=== PATIENT | male | born 1950 | race Caucasian/White ===

== ENCOUNTER 2019-07-21 11:30 | Inpatient (IN) | payer MEDICARE ==
[2019-07-21] MEDS ORDERED: LORazepam 2 MG/ML SDV IVPUSH ONE (11:44)
[2019-07-21] MEDS ORDERED: Lactated Ringers 1,000 ML IV SCH (11:45)
--- NOTE | 2019-07-21 11:58 | EDM.PDOC ---
ED HPI GENERAL MEDICAL PROBLEM - General Chief Complaint: Drug or Alcohol Abuse Stated Complaint: [facility] Time Seen by Provider: 07/21/19 11:38 Source of Information: Reports: Patient, RN Notes Reviewed History Limitations: Reports: Physical Impairment - History of Present Illness INITIAL COMMENTS - FREE TEXT/NARRATIVE: 69-year-old gentleman presents the emergency department today via EMS services, he was recently admitted to detoxification facility early this morning states he last drank alcohol prior to admission to the detoxification facility. Report from detoxification facility is that he fell hit his head has been incontinent of urine and stool. Tremor volume has increased received 11 mg Ativan over the last 13hours. Also report he is having hallucinations. When I interview him his speech is difficult to understand but he knows he is in the hospital he does not recall falling or hitting his head he does not describe hallucinations he does scribes a change in vision in that his vision is cloudy denies any auditory hallucinations - Related Data Allergies Allergy/AdvReac Type Severity Reaction Status Date / Time No Known Allergies Allergy Verified 07/21/19 12:40 Home Meds: Home Meds Bumetanide [Bumex] 1 mg PO DAILY 07/21/19 [History] DULoxetine [Cymbalta] 60 mg PO DAILY 07/21/19 [History] Lisinopril [Zestril] 10 mg PO DAILY 07/21/19 [History] Melatonin 3 mg PO BEDTIME PRN 07/21/19 [History] Multivitamin [Multivitamins] 1 tab PO DAILY 07/21/19 [History] Naltrexone 50 mg PO DAILY 07/21/19 [History] Potassium Chloride [K-Tab ER] 10 meq PO DAILY 07/21/19 [History] Spironolactone [Aldactone] 50 mg PO DAILY 07/21/19 [History] amLODIPine [Norvasc] 5 mg PO DAILY 07/21/19 [History] atorvaSTATin [Lipitor] 10 mg PO DAILY 07/21/19 [History] buPROPion [Wellbutrin SR] 150 mg PO BID 07/21/19 [History] Social & Family History - Tobacco Use Smoking Status *Q: Current Every Day Smoker ED ROS GENERAL - Review of Systems Review Of Systems: See Below Constitutional: Reports: No Symptoms HEENT: Reports: No Symptoms Respiratory: Reports: No Symptoms Cardiovascular: Reports: No Symptoms GI/Abdominal: Reports: No Symptoms Neurological: Reports: Headache, Tremors ED EXAM, GENERAL - Physical Exam Exam: See Below Exam Limited By: Physical Impairment General Appearance: Alert, Mild Distress Eye Exam: Bilateral Eye: Normal Inspection, PERRL Head: Atraumatic, Normocephalic Neck: Normal Inspection, Supple, Non-Tender, Full Range of Motion Respiratory/Chest: No Respiratory Distress, Lungs Clear, Normal Breath Sounds, No Accessory Muscle Use, Chest Non-Tender Cardiovascular: Regular Rate, Rhythm, No Murmur Course - Vital Signs Last Recorded V/S: Last Vital Signs Temp 98 F 07/21/19 12:07 Pulse 86 07/21/19 12:07 Resp 18 07/21/19 12:07 BP 125/77 07/21/19 12:07 Pulse Ox 94 L 07/21/19 12:07 - Orders/Labs/Meds Orders: Active Orders 24 hr Category Date Time Status Peripheral IV Care [RC] . DIRECTED Care 07/21/19 11:42 Active Lactated Ringers [Ringers, Lactated] 1,000 ml Med 07/21/19 11:45 Active IV ASDIRECTED Sodium Chloride 0.9% [Saline Flush] Med 07/21/19 11:41 Active 10 ml FLUSH ASDIRECTED PRN Peripheral IV Insertion Adult [OM.PC] Urgent Oth 07/21/19 11:41 Ordered Medication Orders Lactated Ringer's (Ringers, Lactated) 1,000 mls @ 500 mls/hr IV ASDIRECTED SONALI Last Admin: 07/21/19 12:51 Dose: 500 mls/hr Sodium Chloride (Saline Flush) 10 ml FLUSH ASDIRECTED PRN PRN Reason: Keep Vein Open Last Admin: 07/21/19 12:52 Dose: 10 ml Labs: Laboratory Tests 07/21/19 07/21/19 07/21/19 Range/Units 11:50 11:50 11:50 WBC 5.4 (4.5-11.0) K/uL RBC 3.99 L (4.30-5.90) M/uL Hgb 13.1 (12.0-15.0) g/dL Hct 39.2 L (40.0-54.0) % MCV 98 (80-98) fL MCH 33 H (27-31) pg MCHC 33 (32-36) % Plt Count 131 L (150-400) K/uL Neut % (Auto) 61 (36-66) % Lymph % (Auto) 20 L (24-44) % [place] % (Auto) 15 H (2-6) % Eos % (Auto) 3 (2-4) % Baso % (Auto) 1 (0-1) % PT 11.4 (9.5-12.0) sec INR 1.06 (0.80-1.20) Sodium 138 L (140-148) mmol/L Potassium 3.5 L (3.6-5.2) mmol/L Chloride 101 (100-108) mmol/L Carbon Dioxide 24 (21-32) mmol/L Anion Gap 16.5 H (5.0-14.0) mmol/L BUN 15 (7-18) mg/dL Creatinine 1.0 (0.8-1.3) mg/dL Est Cr Clr Drug Dosing 83.34 mL/min Estimated GFR (MDRD) > 60 (>60) Glucose 86 (74-106) mg/dL Lactic Acid (0.4-2.0) mmol/L Calcium 9.3 (8.5-10.1) mg/dL Total Bilirubin 1.0 (0.2-1.0) mg/dL AST 178 H (15-37) U/L ALT 144 H (12-78) U/L Alkaline Phosphatase 60 (46-116) U/L Ammonia (11-32) mmol/L Troponin I < 0.017 (0.000-0.056) ng/mL Total Protein 7.2 (6.4-8.2) g/dL Albumin 3.6 (3.4-5.0) g/dL Globulin 3.6 H (2.3-3.5) g/dL Albumin/Globulin Ratio 1.0 L (1.2-2.2) Ethyl Alcohol mg/dL 07/21/19 07/21/19 07/21/19 Range/Units 11:50 11:50 11:50 WBC (4.5-11.0) K/uL RBC (4.30-5.90) M/uL Hgb (12.0-15.0) g/dL Hct (40.0-54.0) % MCV (80-98) fL MCH (27-31) pg MCHC (32-36) % Plt Count (150-400) K/uL Neut % (Auto) (36-66) % Lymph % (Auto) (24-44) % [place] % (Auto) (2-6) % Eos % (Auto) (2-4) % Baso % (Auto) (0-1) % PT (9.5-12.0) sec INR (0.80-1.20) Sodium (140-148) mmol/L Potassium (3.6-5.2) mmol/L Chloride (100-108) mmol/L Carbon Dioxide (21-32) mmol/L Anion Gap (5.0-14.0) mmol/L BUN (7-18) mg/dL Creatinine (0.8-1.3) mg/dL Est Cr Clr Drug Dosing mL/min Estimated GFR (MDRD) (>60) Glucose (74-106) mg/dL Lactic Acid 2.6 H (0.4-2.0) mmol/L Calcium (8.5-10.1) mg/dL Total Bilirubin (0.2-1.0) mg/dL AST (15-37) U/L ALT (12-78) U/L Alkaline Phosphatase (46-116) U/L Ammonia 19 (11-32) mmol/L Troponin I (0.000-0.056) ng/mL Total Protein (6.4-8.2) g/dL Albumin (3.4-5.0) g/dL Globulin (2.3-3.5) g/dL Albumin/Globulin Ratio (1.2-2.2) Ethyl Alcohol < 3 mg/dL Meds: Medications Generic Name Dose Route Start Last Admin Trade Name Freq PRN Reason Stop Dose Admin Lactated Ringer's 1,000 mls @ 500 mls/hr 07/21/19 11:45 07/21/19 12:51 Ringers, Lactated IV 500 mls/hr ASDIRECTED SONALI Administration Sodium Chloride 10 ml 07/21/19 11:41 07/21/19 12:52 Saline Flush FLUSH 10 ml ASDIRECTED PRN Administration Keep Vein Open Discontinued Medications Generic Name Dose Route Start Last Admin Trade Name Freq PRN Reason Stop Dose Admin Lorazepam 1 mg 07/21/19 11:44 07/21/19 12:47 Ativan IVPUSH 07/21/19 11:45 1 mg ONETIME ONE Administration Departure - Departure Time of Disposition: 13:12 Disposition: Admitted As Inpatient 68 Condition: Fair Clinical Impression: Alcohol abuse Alcohol withdrawal syndrome Qualifiers: Complication of substance-induced condition: with delirium Qualified Code(s): F10.231 - Alcohol dependence with withdrawal delirium - Discharge Information Referrals: PCP,None [Primary Care Provider] - Forms: ED Department Discharge Sepsis Event Note - Focused Exam Vital Signs: Vital Signs Temp Pulse Resp BP Pulse Ox 07/21/19 12:07 98 F 86 18 125/77 94 L 07/21/19 11:33 98 F 86 18 125/77 94 L Date Exam was Performed: 07/21/19 Time Exam was Performed: 13:07 - My Orders Last 24 Hours: My Active Orders 07/21/19 11:41 Sodium Chloride 0.9% [Saline Flush] 10 ml FLUSH ASDIRECTED PRN Peripheral IV Insertion Adult [OM.PC] Urgent 07/21/19 11:42 Peripheral IV Care [RC] . DIRECTED 07/21/19 11:45 Lactated Ringers [Ringers, Lactated] 1,000 ml IV ASDIRECTED - Assessment/Plan Last 24 Hours: My Active Orders 07/21/19 11:41 Sodium Chloride 0.9% [Saline Flush] 10 ml FLUSH ASDIRECTED PRN Peripheral IV Insertion Adult [OM.PC] Urgent 07/21/19 11:42 Peripheral IV Care [RC] . DIRECTED 07/21/19 11:45 Lactated Ringers [Ringers, Lactated] 1,000 ml IV ASDIRECTED Plan: Assessment Acuity = acute Site and laterality = alcohol abuse intoxication with delirium tremors Etiology = EtOH Manifestations = weakness difficulty ambulating Location of injury = Home Lab values = CBC unremarkable lactic acid slightly elevated 2.6 consistent lactic acidosis AST elevated 178 ALT at 144 consistent elevated liver enzymes troponin was negative EtOH less than 3 Plan Called and discussed case with Dr. Salamanca at 1300 he kindly agreed to come and evaluate the patient in the hospital for admission thus far has been given 1 mg Ativan and food in the emergency department This note was dictated using [employer] voice recognition software please call with any questions on syntax or grammar.
--- NOTE | 2019-07-21 12:23 | CRLCT ---
INDICATION: Trauma COMPARISON: None TECHNIQUE: CT examination of the head was performed as axial sections without intravenous contrast. Images were obtained from the vertex of the skull through the skull base. Please note that all CT scans at this facility use dose modulation, iterative reconstruction, and/or weight-based dosing when appropriate to reduce radiation dose to as low as reasonably achievable. FINDINGS: The brain shows no sign of mass lesion, mass effect, hemorrhage, or edema. There are involutional changes. There is moderate to severe cortical atrophy and there is moderate to severe white matter disease. There is no hydrocephalus. The visualized portions of the orbits are normal in appearance. The osseous structures are normal in appearance with no sign of abnormality in the skull base or calvarium. IMPRESSION: Moderate to severe involutional changes. No visible acute posttraumatic finding. Please note that all CT scans at this facility use dose modulation, iterative reconstruction, and/or weight-based dosing when appropriate to reduce radiation dose to as low as reasonably achievable. Dictated by Marco Antonio Castillo MD @ Jul 21 2019 12:19PM Signed by Dr. Marco Antonio Castillo @ Jul 21 2019 12:21PM
[2019-07-21] MEDS: Sodium Chloride 0.9% 10 ML Syringe FLUSH PRN (12:52)
[2019-07-21] MEDS ORDERED: LORazepam 2 MG/ML SDV IVPUSH PRN (13:16)
[2019-07-21] MEDS: LORazepam 2 MG/ML SDV IVPUSH PRN ×9 (14:45→21:59)
[2019-07-21] MEDS: Lactated Ringers 1,000 ML IV SCH ×2 (15:44→17:33)
--- NOTE | 2019-07-21 16:32 | PCM.HP.2 ---
H&P History of Present Illness - General Date of Service: 07/21/19 Admit Problem/Dx: Admission Diagnosis/Problem Admission Diagnosis/Problem Alcohol withdrawal delirium Source of Information: Patient, RN Notes Reviewed - History of Present Illness Initial Comments - Free Text/Narative: Jose Alejandro is a 69-year-old male has a history of alcohol use for a number of years and recently lost his girlfriend has started to drink heavy. He claims his drinking 1.75 L of vodka daily. In review of the records that came from [facility] has a significant history of essential hypertension hyperlipidemia, erectile dysfunction, osteoarthritis, tobacco use, benign prosthetic hyperplasia, Presbyopia, Hypermetropia, elevated PSA, low back pain, spinal stenosis, depression, hammertoe, back surgery, cataracts, BMI of 30, bronchospasm, tubular adenoma of the colon, and diastolic dysfunction with heart failure alcohol use, severe, dependence, alcohol withdrawal, acute kidney injury. He was at [facility]. He fell and was unable to participate in the program of alcohol withdrawal. He was then brought to the hospital and admitted. He is confused and unable to give a history. Onset of Symptoms: Reports: Gradual - Related Data Allergies/Adverse Reactions: Allergies Allergy/AdvReac Type Severity Reaction Status Date / Time No Known Allergies Allergy Verified 07/21/19 12:40 Home Medications: Home Meds Bumetanide [Bumex] 1 mg PO DAILY 07/21/19 [History] DULoxetine [Cymbalta] 60 mg PO DAILY 07/21/19 [History] Lisinopril [Zestril] 10 mg PO DAILY 07/21/19 [History] Melatonin 3 mg PO BEDTIME PRN 07/21/19 [History] Multivitamin [Multivitamins] 1 tab PO DAILY 07/21/19 [History] Naltrexone 50 mg PO DAILY 07/21/19 [History] Potassium Chloride [K-Tab ER] 10 meq PO DAILY 07/21/19 [History] Spironolactone [Aldactone] 50 mg PO DAILY 07/21/19 [History] amLODIPine [Norvasc] 5 mg PO DAILY 07/21/19 [History] atorvaSTATin [Lipitor] 10 mg PO DAILY 07/21/19 [History] buPROPion [Wellbutrin SR] 150 mg PO BID 07/21/19 [History] Past Medical History Cardiovascular History: Reports: Heart Failure, High Cholesterol, Hypertension Respiratory History: Reports: Bronchitis, Recurrent Genitourinary History: Reports: Prostate Disorder, Other (See Below) Other Genitourinary History: acute kidney injury. Musculoskeletal History: Reports: Arthritis, Back Pain, Chronic Other Musculoskeletal History: SPinal Stenosis Psychiatric History: Reports: Addiction, Depression - Past Surgical History Other GI Surgeries/Procedures: tubular adenoma of colon Musculoskeletal Surgical History: Reports: Other (See Below) Other Musculoskeletal Surgeries/Procedures:: back surgery Social & Family History - Tobacco Use Smoking Status *Q: Current Every Day Smoker - Caffeine Use Caffeine Use: Reports: Coffee - Recreational Drug Use Recreational Drug Use: No H&P Review of Systems - Review of Systems: Review Of Systems: See Below General: Reports: Weakness Pulmonary: Reports: Shortness of Breath, Cough Cardiovascular: Reports: Dyspnea on Exertion Gastrointestinal: Reports: Difficulty Swallowing, Nausea Genitourinary: Reports: Incontinence Skin: Reports: No Symptoms Psychiatric: Reports: Agitation Neurological: Reports: Confusion, Trouble Speaking, Difficulty Walking, Weakness Hematologic/Lymphatic: Reports: No Symptoms Immunologic: Reports: No Symptoms Exam - Exam Exam: See Below - Vital Signs Vital Signs: Last Vital Signs Temp 98 F 07/21/19 14:00 Pulse 118 H 07/21/19 15:00 Resp 24 H 07/21/19 15:00 BP 158/77 H 07/21/19 15:00 Pulse Ox 96 07/21/19 15:00 Weight: 325 lb 15.96 oz - Exam General: Moderate Distress HEENT: PERRLA, Hearing Intact Neck: Supple Lungs: Clear to Auscultation Cardiovascular: Regular Rate GI/Abdominal Exam: Normal Bowel Sounds, Soft Back Exam: Normal Inspection Extremities: Pedal Edema Peripheral Pulses: 1+: Radial (L), Radial (R) Skin: Warm, Dry, Intact Neurological: Reflexes Equal Bilateral Neuro Extensive - Mental Status: Disorientation to Person, Disorientation to Place DTR: 1+: Bicep (L), Bicep (R) Psychiatric: Withdrawal Symptoms - Patient Data Lab Results Last 24 hrs: Laboratory Results - last 24 hr 07/21/19 07/21/19 07/21/19 Range/Units 11:50 11:50 11:50 WBC 5.4 (4.5-11.0) K/uL RBC 3.99 L (4.30-5.90) M/uL Hgb 13.1 (12.0-15.0) g/dL Hct 39.2 L (40.0-54.0) % MCV 98 (80-98) fL MCH 33 H (27-31) pg MCHC 33 (32-36) % Plt Count 131 L (150-400) K/uL Neut % (Auto) 61 (36-66) % Lymph % (Auto) 20 L (24-44) % [place] % (Auto) 15 H (2-6) % Eos % (Auto) 3 (2-4) % Baso % (Auto) 1 (0-1) % PT 11.4 (9.5-12.0) sec INR 1.06 (0.80-1.20) Sodium 138 L (140-148) mmol/L Potassium 3.5 L (3.6-5.2) mmol/L Chloride 101 (100-108) mmol/L Carbon Dioxide 24 (21-32) mmol/L Anion Gap 16.5 H (5.0-14.0) mmol/L BUN 15 (7-18) mg/dL Creatinine 1.0 (0.8-1.3) mg/dL Est Cr Clr Drug Dosing 83.34 mL/min Estimated GFR (MDRD) > 60 (>60) Glucose 86 (74-106) mg/dL Lactic Acid (0.4-2.0) mmol/L Calcium 9.3 (8.5-10.1) mg/dL Total Bilirubin 1.0 (0.2-1.0) mg/dL AST 178 H (15-37) U/L ALT 144 H (12-78) U/L Alkaline Phosphatase 60 (46-116) U/L Ammonia (11-32) mmol/L Troponin I < 0.017 (0.000-0.056) ng/mL Total Protein 7.2 (6.4-8.2) g/dL Albumin 3.6 (3.4-5.0) g/dL Globulin 3.6 H (2.3-3.5) g/dL Albumin/Globulin Ratio 1.0 L (1.2-2.2) Ethyl Alcohol mg/dL 07/21/19 07/21/19 07/21/19 Range/Units 11:50 11:50 11:50 WBC (4.5-11.0) K/uL RBC (4.30-5.90) M/uL Hgb (12.0-15.0) g/dL Hct (40.0-54.0) % MCV (80-98) fL MCH (27-31) pg MCHC (32-36) % Plt Count (150-400) K/uL Neut % (Auto) (36-66) % Lymph % (Auto) (24-44) % [place] % (Auto) (2-6) % Eos % (Auto) (2-4) % Baso % (Auto) (0-1) % PT (9.5-12.0) sec INR (0.80-1.20) Sodium (140-148) mmol/L Potassium (3.6-5.2) mmol/L Chloride (100-108) mmol/L Carbon Dioxide (21-32) mmol/L Anion Gap (5.0-14.0) mmol/L BUN (7-18) mg/dL Creatinine (0.8-1.3) mg/dL Est Cr Clr Drug Dosing mL/min Estimated GFR (MDRD) (>60) Glucose (74-106) mg/dL Lactic Acid 2.6 H (0.4-2.0) mmol/L Calcium (8.5-10.1) mg/dL Total Bilirubin (0.2-1.0) mg/dL AST (15-37) U/L ALT (12-78) U/L Alkaline Phosphatase (46-116) U/L Ammonia 19 (11-32) mmol/L Troponin I (0.000-0.056) ng/mL Total Protein (6.4-8.2) g/dL Albumin (3.4-5.0) g/dL Globulin (2.3-3.5) g/dL Albumin/Globulin Ratio (1.2-2.2) Ethyl Alcohol < 3 mg/dL Result Diagrams: 07/21/19 11:50 07/21/19 11:50 Sepsis Event Note - Evaluation Sepsis Screening Result: No Definite Risk - Focused Exam Vital Signs: Vital Signs Temp Temp Pulse Pulse Resp BP Pulse Ox 07/21/19 15:00 118 H 24 H 158/77 H 96 07/21/19 14:00 98 F 109 H 24 H 137/78 96 07/21/19 13:56 98 F 109 H 15 96 07/21/19 12:07 98 F 86 18 125/77 94 L 07/21/19 11:33 98 F 86 18 125/77 94 L Date Exam was Performed: 07/21/19 Time Exam was Performed: 16:27 Problem List Initiated/Reviewed/Updated: Yes Orders Last 24hrs: Active Orders 24 hr Category Date Time Status Patient Status [ADT] Routine ADT 07/21/19 13:14 Active CIWAA Assessment [RC] Q1H Care 07/21/19 13:16 Active Height and Weight [RC] DAILY Care 07/21/19 13:14 Active Intake and Output [RC] QSHIFT Care 07/21/19 13:15 Active Oxygen Therapy [RC] PRN Care 07/21/19 13:14 Active Peripheral IV Care [RC] . DIRECTED Care 07/21/19 11:42 Active Up With Assistance [RC] ASDIRECTED Care 07/21/19 13:14 Active VTE/DVT Education [RC] Per Unit Routine Care 07/21/19 13:14 Active Vital Signs [RC] Q4H Care 07/21/19 13:14 Active PT Evaluation and Treatment [CONS] Routine Cons 07/21/19 16:18 Active Regular Diet [DIET] Diet 07/21/19 Dinner Active LORazepam [Ativan] Med 07/21/19 13:54 Active See Protocol IVPUSH ASDIRECTED PRN Lactated Ringers [Ringers, Lactated] 1,000 ml Med 07/21/19 13:15 Active IV ASDIRECTED Sodium Chloride 0.9% [Saline Flush] Med 07/21/19 11:41 Active 10 ml FLUSH ASDIRECTED PRN Peripheral IV Insertion Adult [OM.PC] Urgent Oth 07/21/19 11:41 Ordered Resuscitation Status Routine Resus Stat 07/21/19 13:14 Ordered Medication Orders Lactated Ringer's (Ringers, Lactated) 1,000 mls @ 125 mls/hr IV ASDIRECTED SONALI Last Admin: 07/21/19 15:44 Dose: 125 mls/hr Lorazepam (Ativan) 0 mg IVPUSH ASDIRECTED PRN; Protocol PRN Reason: Agitation Last Admin: 07/21/19 16:21 Dose: 2 mg Admin: 07/21/19 15:44 Dose: 2 mg Admin: 07/21/19 15:23 Dose: 2 mg Admin: 07/21/19 14:45 Dose: 2 mg Sodium Chloride (Saline Flush) 10 ml FLUSH ASDIRECTED PRN PRN Reason: Keep Vein Open Last Admin: 07/21/19 12:52 Dose: 10 ml Assessment/Plan Comment:: Assessment/plan: #1. Alcohol withdrawal. I'll put him on the protocol using Valium and/or Ativan according to his symptoms. #2. Confusion. This a feel secondary to alcohol withdrawal #3. Hypertension: He needs to continue on with amlodipine as well as Bumex and lisinopril. We will continue this medicine depending on blood pressure readings has to go through withdrawals. #4. Depression. He'll continue with Wellbutrin as well as Cymbalta #5. Hyperlipidemia. Will continue with atorvastatin 10 mg every night. #6. Chronic obstructive pulmonary disease. We'll continue with albuterol inhaler.
[2019-07-21] MEDS ORDERED: Albuterol 8 GM Inhaler INH PRN (16:57)
[2019-07-21] MEDS: Haloperidol Lactate 5 MG/ML SDV IVPUSH PRN (17:27)
[2019-07-21] MEDS: buPROPion 150 MG Tab.SR PO SCH (22:08)
[2019-07-21] MEDS ORDERED: LORazepam 2 MG/ML SDV IM PRN (22:30)
[2019-07-22] MEDS: LORazepam 2 MG/ML SDV IV PRN ×9 (00:53→18:12)
[2019-07-22] MEDS: Lactated Ringers 1,000 ML IV SCH ×2 (00:57→08:51)
[2019-07-22] MEDS: Haloperidol Lactate 5 MG/ML SDV IVPUSH PRN ×2 (01:14→10:18)
[2019-07-22] MEDS: DULoxetine 30 MG Cap PO SCH (08:01)
[2019-07-22] MEDS: Folic Acid 1 MG Tab PO SCH (08:01)
[2019-07-22] MEDS: buPROPion 150 MG Tab.SR PO SCH ×2 (08:02→20:31)
[2019-07-22] MEDS: Lisinopril 10 MG Tab PO SCH (08:02)
[2019-07-22] MEDS: Spironolactone 25 MG Tab PO SCH (08:02)
[2019-07-22] MEDS: Bumetanide 1 MG Tab PO SCH (08:03)
[2019-07-22] MEDS: Dutasteride 0.5 MG Cap PO SCH (08:04)
--- NOTE | 2019-07-22 08:34 | PCM.PN ---
- General Info Date of Service: 07/22/19 Subjective Update: Still in withdrawl with slow improvement. Still needing meds. He did eat food today but shaky due to withdrawal of alcohol. Functional Status: Reports: Pain Controlled - Review of Systems General: Reports: Weakness Pulmonary: Reports: No Symptoms Cardiovascular: Reports: No Symptoms Gastrointestinal: Reports: No Symptoms Genitourinary: Reports: No Symptoms Musculoskeletal: Reports: No Symptoms Skin: Reports: No Symptoms Neurological: Reports: Difficulty Walking, Weakness Psychiatric: Reports: Agitation - Patient Data Vitals - Most Recent: Last Vital Signs Temp 98.1 F 07/22/19 02:00 Pulse 92 07/21/19 18:03 Resp 17 07/22/19 06:00 BP 144/83 H 07/22/19 08:02 Pulse Ox 97 07/22/19 06:00 Weight - Most Recent: 325 lb 15.96 oz I&O - Last 24 Hours: Intake & Output 07/21/19 07/22/19 07/22/19 22:59 06:59 14:59 Intake Total 523 1554 Balance 523 1554 Lab Results Last 24 Hours: Laboratory Results - last 24 hr 07/21/19 07/21/19 07/21/19 Range/Units 11:50 11:50 11:50 WBC 5.4 (4.5-11.0) K/uL RBC 3.99 L (4.30-5.90) M/uL Hgb 13.1 (12.0-15.0) g/dL Hct 39.2 L (40.0-54.0) % MCV 98 (80-98) fL MCH 33 H (27-31) pg MCHC 33 (32-36) % Plt Count 131 L (150-400) K/uL Neut % (Auto) 61 (36-66) % Lymph % (Auto) 20 L (24-44) % [place] % (Auto) 15 H (2-6) % Eos % (Auto) 3 (2-4) % Baso % (Auto) 1 (0-1) % PT 11.4 (9.5-12.0) sec INR 1.06 (0.80-1.20) Sodium 138 L (140-148) mmol/L Potassium 3.5 L (3.6-5.2) mmol/L Chloride 101 (100-108) mmol/L Carbon Dioxide 24 (21-32) mmol/L Anion Gap 16.5 H (5.0-14.0) mmol/L BUN 15 (7-18) mg/dL Creatinine 1.0 (0.8-1.3) mg/dL Est Cr Clr Drug Dosing 83.34 mL/min Estimated GFR (MDRD) > 60 (>60) Glucose 86 (74-106) mg/dL Lactic Acid (0.4-2.0) mmol/L Calcium 9.3 (8.5-10.1) mg/dL Total Bilirubin 1.0 (0.2-1.0) mg/dL AST 178 H (15-37) U/L ALT 144 H (12-78) U/L Alkaline Phosphatase 60 (46-116) U/L Ammonia (11-32) mmol/L Troponin I < 0.017 (0.000-0.056) ng/mL Total Protein 7.2 (6.4-8.2) g/dL Albumin 3.6 (3.4-5.0) g/dL Globulin 3.6 H (2.3-3.5) g/dL Albumin/Globulin Ratio 1.0 L (1.2-2.2) Ethyl Alcohol mg/dL 07/21/19 07/21/19 07/21/19 Range/Units 11:50 11:50 11:50 WBC (4.5-11.0) K/uL RBC (4.30-5.90) M/uL Hgb (12.0-15.0) g/dL Hct (40.0-54.0) % MCV (80-98) fL MCH (27-31) pg MCHC (32-36) % Plt Count (150-400) K/uL Neut % (Auto) (36-66) % Lymph % (Auto) (24-44) % [place] % (Auto) (2-6) % Eos % (Auto) (2-4) % Baso % (Auto) (0-1) % PT (9.5-12.0) sec INR (0.80-1.20) Sodium (140-148) mmol/L Potassium (3.6-5.2) mmol/L Chloride (100-108) mmol/L Carbon Dioxide (21-32) mmol/L Anion Gap (5.0-14.0) mmol/L BUN (7-18) mg/dL Creatinine (0.8-1.3) mg/dL Est Cr Clr Drug Dosing mL/min Estimated GFR (MDRD) (>60) Glucose (74-106) mg/dL Lactic Acid 2.6 H (0.4-2.0) mmol/L Calcium (8.5-10.1) mg/dL Total Bilirubin (0.2-1.0) mg/dL AST (15-37) U/L ALT (12-78) U/L Alkaline Phosphatase (46-116) U/L Ammonia 19 (11-32) mmol/L Troponin I (0.000-0.056) ng/mL Total Protein (6.4-8.2) g/dL Albumin (3.4-5.0) g/dL Globulin (2.3-3.5) g/dL Albumin/Globulin Ratio (1.2-2.2) Ethyl Alcohol < 3 mg/dL Med Orders - Current: Current Medications Albuterol (Ventolin Hfa) 2 gm INH Q4H PRN PRN Reason: Shortness of Breath Amlodipine Besylate (Norvasc) 5 mg PO DAILY [facility] Bumetanide (Bumex) 0.5 mg PO DAILY [facility] Last Admin: 07/22/19 08:03 Dose: 0.5 mg Bupropion HCl (Wellbutrin Sr) 150 mg PO BID [facility] Last Admin: 07/22/19 08:02 Dose: 150 mg Duloxetine HCl (Cymbalta) 60 mg PO DAILY [facility] Last Admin: 07/22/19 08:01 Dose: 60 mg Dutasteride (Avodart) 0.5 mg PO DAILY [facility] Last Admin: 07/22/19 08:04 Dose: 0.5 mg Folic Acid (Folic Acid) 1 mg PO DAILY [facility] Last Admin: 07/22/19 08:01 Dose: 1 mg Haloperidol Lactate (Haldol) 5 mg IVPUSH Q2H PRN PRN Reason: Irritability Last Admin: 07/22/19 01:14 Dose: 5 mg Lactated Ringer's (Ringers, Lactated) 1,000 mls @ 125 mls/hr IV ASDIRECTED [facility] Last Admin: 07/22/19 00:57 Dose: 125 mls/hr Lisinopril (Prinivil) 10 mg PO DAILY [facility] Last Admin: 07/22/19 08:02 Dose: 10 mg Lorazepam (Ativan) 0 mg PO ASDIRECTED PRN; Protocol PRN Reason: ETOH WITHDRAWAL Lorazepam (Ativan) 0 mg IV ASDIRECTED PRN; Protocol PRN Reason: ETOH WITHDRAWAL Last Admin: 07/22/19 08:13 Dose: 2 mg Lorazepam (Ativan) 0 mg IM ASDIRECTED PRN; Protocol PRN Reason: ETOH WITHDRAWAL Sodium Chloride (Saline Flush) 10 ml FLUSH ASDIRECTED PRN PRN Reason: Keep Vein Open Last Admin: 07/21/19 12:52 Dose: 10 ml Spironolactone (Aldactone) 50 mg PO DAILY [facility] Last Admin: 07/22/19 08:02 Dose: 50 mg Discontinued Medications Lactated Ringer's (Ringers, Lactated) 1,000 mls @ 500 mls/hr IV ASDIRECTED [facility] Last Admin: 07/21/19 12:51 Dose: 500 mls/hr Lorazepam (Ativan) 1 mg IVPUSH ONETIME ONE Stop: 07/21/19 11:45 Last Admin: 07/21/19 12:47 Dose: 1 mg Lorazepam (Ativan) 1 mg IVPUSH Q4H PRN PRN Reason: Agitation Last Admin: 07/21/19 13:38 Dose: 1 mg Lorazepam (Ativan) 0 mg IVPUSH ASDIRECTED PRN; Protocol PRN Reason: Agitation Last Admin: 07/21/19 21:59 Dose: 2 mg - Exam General: Moderate Distress HEENT: Pupils Equal Neck: Supple Lungs: Clear to Auscultation Cardiovascular: Regular Rate GI/Abdominal Exam: Normal Bowel Sounds, Non-Tender Back Exam: Normal Inspection Extremities: Pedal Edema Peripheral Pulses: 1+: Radial (L), Radial (R) Psy/Mental Status: Withdrawal Symptoms Sepsis Event Note - Evaluation Sepsis Screening Result: No Definite Risk - Focused Exam Vital Signs: Vital Signs Temp Resp BP BP Pulse Ox 07/22/19 08:02 144/83 H 07/22/19 06:00 17 138/78 97 07/22/19 04:00 13 127/80 99 07/22/19 03:00 18 133/77 98 07/22/19 02:00 98.1 F 13 112/73 98 07/22/19 00:00 14 127/71 97 07/21/19 22:00 16 127/79 96 07/21/19 21:00 19 117/70 99 Date Exam was Performed: 07/22/19 Time Exam was Performed: 18:33 - Problem List Review Problem List Initiated/Reviewed/Updated: Yes - My Orders Last 24 Hours: My Active Orders 07/21/19 16:18 PT Evaluation and Treatment [CONS] Routine 07/21/19 16:57 Albuterol [Ventolin HFA] 2 gm INH Q4H PRN 07/21/19 16:59 RT Post Treatment Assessment [RC] Click to Edit 07/21/19 17:21 Haloperidol Lactate [Haldol] 5 mg IVPUSH Q2H PRN 07/21/19 21:00 buPROPion [Wellbutrin SR] 150 mg PO BID 07/21/19 22:30 LORazepam [Ativan] 0 mg IM ASDIRECTED PRN LORazepam [Ativan] 0 mg IV ASDIRECTED PRN LORazepam [Ativan] 0 mg PO ASDIRECTED PRN 07/22/19 09:00 Bumetanide [Bumex] 0.5 mg PO DAILY DULoxetine [Cymbalta] 60 mg PO DAILY Dutasteride [Avodart] 0.5 mg PO DAILY Folic Acid 1 mg PO DAILY Spironolactone [Aldactone] 50 mg PO DAILY lisinopriL [Prinivil] 10 mg PO DAILY 07/22/19 21:00 amLODIPine [Norvasc] 5 mg PO DAILY - Plan Plan:: Assessment/plan: #1. Alcohol withdrawal. I'll put him on the protocol using Ativan and Haldol according to his symptoms. #2. Confusion. This a feel secondary to alcohol withdrawal #3. Hypertension: He needs to continue on with amlodipine as well as Bumex and lisinopril. We will continue this medicine depending on blood pressure readings has to go through withdrawals. #4. Depression. He'll continue with Wellbutrin as well as Cymbalta #5. Hyperlipidemia. Will continue with atorvastatin 10 mg every night. #6. Chronic obstructive pulmonary disease. We'll continue with albuterol inhaler. Still needs continued care.
[2019-07-22] MEDS: Sodium Chloride 0.9% 10 ML Syringe FLUSH PRN (10:22)
[2019-07-22] MEDS ORDERED: Lactated Ringers 1,000 ML IV SCH (13:45)
[2019-07-22] MEDS: LORazepam 1 MG Tab PO PRN (20:30)
[2019-07-22] MEDS: amLODIPine 5 MG Tab PO SCH (20:31)
[2019-07-22] MEDS ORDERED: Naproxen 250 MG Tab PO PRN (23:45)
[2019-07-23] MEDS: DULoxetine 30 MG Cap PO SCH (09:24)
[2019-07-23] MEDS: buPROPion 150 MG Tab.SR PO SCH ×2 (09:24→20:43)
[2019-07-23] MEDS: Lisinopril 10 MG Tab PO SCH (09:24)
[2019-07-23] MEDS: amLODIPine 5 MG Tab PO SCH (09:25)
[2019-07-23] MEDS: Folic Acid 1 MG Tab PO SCH (09:25)
[2019-07-23] MEDS: Spironolactone 25 MG Tab PO SCH (09:25)
[2019-07-23] MEDS: Dutasteride 0.5 MG Cap PO SCH (09:26)
[2019-07-23] MEDS: Bumetanide 1 MG Tab PO SCH (09:26)
[2019-07-23] MEDS: LORazepam 1 MG Tab PO PRN ×2 (12:03→20:42)
--- NOTE | 2019-07-23 18:07 | PCM.PN ---
- General Info Date of Service: 07/23/19 Subjective Update: Still in withdrawl with improvement. Still needing minimal meds today. He did eat food today but shaky due to withdrawal of alcohol. He thought he would be going home then to treatment. He is still very weak when walking and not safe to walk alone. Functional Status: Reports: Pain Controlled - Review of Systems General: Reports: Weakness, Fatigue HEENT: Reports: No Symptoms Pulmonary: Reports: No Symptoms Cardiovascular: Reports: No Symptoms Gastrointestinal: Reports: No Symptoms Genitourinary: Reports: No Symptoms Musculoskeletal: Reports: No Symptoms Skin: Reports: No Symptoms Neurological: Reports: Difficulty Walking, Weakness, Gait Disturbance Psychiatric: Reports: No Symptoms - Patient Data Vitals - Most Recent: Last Vital Signs Temp 97.8 F 07/23/19 16:00 Pulse 78 07/23/19 16:00 Resp 15 07/23/19 16:00 BP 133/64 07/23/19 16:00 Pulse Ox 97 07/23/19 16:00 Weight - Most Recent: 327 lb 4.8 oz I&O - Last 24 Hours: Intake & Output 07/23/19 07/23/19 07/23/19 06:59 14:59 22:59 Intake Total 575 100 480 Output Total 200 Balance 575 100 280 Med Orders - Current: Current Medications Albuterol (Ventolin Hfa) 2 gm INH Q4H PRN PRN Reason: Shortness of Breath Amlodipine Besylate (Norvasc) 5 mg PO DAILY [facility] Last Admin: 07/23/19 09:25 Dose: 5 mg Bumetanide (Bumex) 0.5 mg PO DAILY [facility] Last Admin: 07/23/19 09:26 Dose: 0.5 mg Bupropion HCl (Wellbutrin Sr) 150 mg PO BID [facility] Last Admin: 07/23/19 09:24 Dose: 150 mg Duloxetine HCl (Cymbalta) 60 mg PO DAILY [facility] Last Admin: 07/23/19 09:24 Dose: 60 mg Dutasteride (Avodart) 0.5 mg PO DAILY [facility] Last Admin: 07/23/19 09:26 Dose: 0.5 mg Folic Acid (Folic Acid) 1 mg PO DAILY [facility] Last Admin: 07/23/19 09:25 Dose: 1 mg Haloperidol Lactate (Haldol) 5 mg IVPUSH Q2H PRN PRN Reason: Irritability Last Admin: 07/22/19 10:18 Dose: 5 mg Lactated Ringer's (Ringers, Lactated) 1,000 mls @ 75 mls/hr IV ASDIRECTED [facility] Lisinopril (Prinivil) 10 mg PO DAILY [facility] Last Admin: 07/23/19 09:24 Dose: 10 mg Lorazepam (Ativan) 0 mg PO ASDIRECTED PRN; Protocol PRN Reason: ETOH WITHDRAWAL Last Admin: 07/23/19 12:03 Dose: 1 mg Lorazepam (Ativan) 0 mg IV ASDIRECTED PRN; Protocol PRN Reason: ETOH WITHDRAWAL Last Admin: 07/22/19 18:12 Dose: 2 mg Lorazepam (Ativan) 0 mg IM ASDIRECTED PRN; Protocol PRN Reason: ETOH WITHDRAWAL Naproxen (Naprosyn) 500 mg PO BID PRN PRN Reason: Pain Last Admin: 07/23/19 00:13 Dose: 500 mg Sodium Chloride (Saline Flush) 10 ml FLUSH ASDIRECTED PRN PRN Reason: Keep Vein Open Last Admin: 07/22/19 10:22 Dose: 10 ml Spironolactone (Aldactone) 50 mg PO DAILY [facility] Last Admin: 07/23/19 09:25 Dose: 50 mg Discontinued Medications Lactated Ringer's (Ringers, Lactated) 1,000 mls @ 500 mls/hr IV ASDIRECTED [facility] Last Admin: 07/21/19 12:51 Dose: 500 mls/hr Lactated Ringer's (Ringers, Lactated) 1,000 mls @ 125 mls/hr IV ASDIRECTED [facility] Last Admin: 07/22/19 08:51 Dose: 125 mls/hr Lorazepam (Ativan) 1 mg IVPUSH ONETIME ONE Stop: 07/21/19 11:45 Last Admin: 07/21/19 12:47 Dose: 1 mg Lorazepam (Ativan) 1 mg IVPUSH Q4H PRN PRN Reason: Agitation Last Admin: 07/21/19 13:38 Dose: 1 mg Lorazepam (Ativan) 0 mg IVPUSH ASDIRECTED PRN; Protocol PRN Reason: Agitation Last Admin: 07/21/19 21:59 Dose: 2 mg - Exam General: Oriented, Mild Distress HEENT: Pupils Equal, Pupils Reactive, EOMI, Mucous Membr. Moist/[place] Neck: Supple Lungs: Clear to Auscultation, Normal Respiratory Effort Cardiovascular: Regular Rate, Regular Rhythm GI/Abdominal Exam: Normal Bowel Sounds, Soft, Non-Tender, No Organomegaly, No Distention, No Abnormal Bruit, No Mass, Pelvis Stable Back Exam: Normal Inspection, Full Range of Motion Extremities: Normal Inspection, Normal Range of Motion, Non-Tender, No Pedal Edema, Normal Capillary Refill Peripheral Pulses: 1+: Radial (L), Radial (R) Skin: Warm, Dry, Intact Neurological: Strength Equal Bilateral, Sensation Intact Psy/Mental Status: Withdrawal Symptoms Sepsis Event Note - Evaluation Sepsis Screening Result: No Definite Risk - Focused Exam Vital Signs: Vital Signs Temp Pulse Resp BP BP Pulse Ox 07/23/19 16:00 97.8 F 78 15 133/64 97 07/23/19 14:00 62 11 L 159/78 H 100 07/23/19 11:59 96.1 F 89 15 137/83 97 07/23/19 10:00 71 12 145/82 H 97 07/23/19 09:25 120/61 07/23/19 09:24 120/61 07/23/19 07:56 96.6 F 61 12 120/61 97 Date Exam was Performed: 07/23/19 Time Exam was Performed: 18:00 - Problem List Review Problem List Initiated/Reviewed/Updated: Yes - My Orders Last 24 Hours: My Active Orders 07/22/19 21:00 amLODIPine [Norvasc] 5 mg PO DAILY 07/22/19 23:45 Naproxen [Naprosyn] 500 mg PO BID PRN - Plan Plan:: Assessment/plan: #1. Alcohol withdrawal. He is doing much better at the present time. I spoke with the sister, Alma Delia, who has related he is to go for treatment in [place] but he must be independent for walking before they will except him. He will be going for Rehab at [facility] and then to the rehab for alcohol treatment when able to safely ambulate alone. #2. Confusion. This a feel secondary to alcohol withdrawal much improved presently. #3. Hypertension: He needs to continue on with amlodipine as well as Bumex and lisinopril. #4. Depression. He'll continue with Wellbutrin as well as Cymbalta #5. Hyperlipidemia. Will continue with atorvastatin 10 mg every night. #6. Chronic obstructive pulmonary disease. We'll continue with albuterol inhaler. Still needs continued care. Will repeat labs in the morning.
[2019-07-24] MEDS: LORazepam 1 MG Tab PO PRN ×5 (03:43→23:19)
[2019-07-24] MEDS: Folic Acid 1 MG Tab PO SCH (08:16)
[2019-07-24] MEDS: Spironolactone 25 MG Tab PO SCH (08:16)
[2019-07-24] MEDS: Lisinopril 10 MG Tab PO SCH (08:16)
[2019-07-24] MEDS: DULoxetine 30 MG Cap PO SCH (08:16)
[2019-07-24] MEDS: amLODIPine 5 MG Tab PO SCH (08:17)
[2019-07-24] MEDS: Dutasteride 0.5 MG Cap PO SCH (08:17)
[2019-07-24] MEDS: buPROPion 150 MG Tab.SR PO SCH ×2 (08:17→21:12)
[2019-07-24] MEDS: Bumetanide 1 MG Tab PO SCH (08:18)
--- NOTE | 2019-07-24 17:12 | PCM.PN ---
- General Info Date of Service: 07/24/19 Subjective Update: He was transferred from ICU up to second floor this morning as he was doing quite well. He does state that he sees a few black spots going across his vision and he knows it's not real. He says he has walked a little bit today. Functional Status: Reports: Pain Controlled - Review of Systems General: Reports: Weakness, Fatigue HEENT: Reports: No Symptoms Pulmonary: Reports: No Symptoms Cardiovascular: Reports: No Symptoms Gastrointestinal: Reports: No Symptoms Genitourinary: Reports: No Symptoms Musculoskeletal: Reports: No Symptoms Skin: Reports: No Symptoms Neurological: Reports: Difficulty Walking, Weakness, Gait Disturbance Psychiatric: Reports: Hallucinations - Patient Data Vitals - Most Recent: Last Vital Signs Temp 99 F 07/24/19 15:52 Pulse 93 07/24/19 15:52 Resp 20 07/24/19 15:52 BP 133/86 07/24/19 15:52 Pulse Ox 95 07/24/19 15:52 Weight - Most Recent: 327 lb 4.8 oz I&O - Last 24 Hours: Intake & Output 07/24/19 07/24/19 07/24/19 06:59 14:59 22:59 Intake Total 1220 Output Total 1 Balance 1220 -1 Lab Results Last 24 Hours: Laboratory Results - last 24 hr 07/24/19 07/24/19 Range/Units 06:15 06:15 WBC 6.3 (4.5-11.0) K/uL RBC 4.05 L (4.30-5.90) M/uL Hgb 13.3 (12.0-15.0) g/dL Hct 40.0 (40.0-54.0) % MCV 99 H (80-98) fL MCH 33 H (27-31) pg MCHC 33 (32-36) % Plt Count 146 L (150-400) K/uL Neut % (Auto) 61 (36-66) % Lymph % (Auto) 22 L (24-44) % [place] % (Auto) 13 H (2-6) % Eos % (Auto) 4 (2-4) % Baso % (Auto) 1 (0-1) % Sodium 138 L (140-148) mmol/L Potassium 3.5 L (3.6-5.2) mmol/L Chloride 103 (100-108) mmol/L Carbon Dioxide 25 (21-32) mmol/L Anion Gap 13.5 (5.0-14.0) mmol/L BUN 17 (7-18) mg/dL Creatinine 1.0 (0.8-1.3) mg/dL Est Cr Clr Drug Dosing 83.38 mL/min Estimated GFR (MDRD) > 60 (>60) Glucose 80 (74-106) mg/dL Calcium 8.7 (8.5-10.1) mg/dL Total Bilirubin 1.0 (0.2-1.0) mg/dL AST 66 H (15-37) U/L ALT 115 H (12-78) U/L Alkaline Phosphatase 62 (46-116) U/L Total Protein 6.9 (6.4-8.2) g/dL Albumin 3.3 L (3.4-5.0) g/dL Globulin 3.6 H (2.3-3.5) g/dL Albumin/Globulin Ratio 0.9 L (1.2-2.2) Med Orders - Current: Current Medications Albuterol (Ventolin Hfa) 2 gm INH Q4H PRN PRN Reason: Shortness of Breath Amlodipine Besylate (Norvasc) 5 mg PO DAILY [facility] Last Admin: 07/24/19 08:17 Dose: 5 mg Bumetanide (Bumex) 0.5 mg PO DAILY [facility] Last Admin: 07/24/19 08:18 Dose: Not Given Bupropion HCl (Wellbutrin Sr) 150 mg PO BID [facility] Last Admin: 07/24/19 08:17 Dose: 150 mg Duloxetine HCl (Cymbalta) 60 mg PO DAILY [facility] Last Admin: 07/24/19 08:16 Dose: 60 mg Dutasteride (Avodart) 0.5 mg PO DAILY [facility] Last Admin: 07/24/19 08:17 Dose: 0.5 mg Folic Acid (Folic Acid) 1 mg PO DAILY [facility] Last Admin: 07/24/19 08:16 Dose: 1 mg Haloperidol Lactate (Haldol) 5 mg IVPUSH Q2H PRN PRN Reason: Irritability Last Admin: 07/22/19 10:18 Dose: 5 mg Lisinopril (Prinivil) 10 mg PO DAILY [facility] Last Admin: 07/24/19 08:16 Dose: 10 mg Lorazepam (Ativan) 0 mg PO ASDIRECTED PRN; Protocol PRN Reason: ETOH WITHDRAWAL Last Admin: 07/24/19 16:33 Dose: 1 mg Lorazepam (Ativan) 0 mg IV ASDIRECTED PRN; Protocol PRN Reason: ETOH WITHDRAWAL Last Admin: 07/22/19 18:12 Dose: 2 mg Lorazepam (Ativan) 0 mg IM ASDIRECTED PRN; Protocol PRN Reason: ETOH WITHDRAWAL Naproxen (Naprosyn) 500 mg PO BID PRN PRN Reason: Pain Last Admin: 07/23/19 00:13 Dose: 500 mg Sodium Chloride (Saline Flush) 10 ml FLUSH ASDIRECTED PRN PRN Reason: Keep Vein Open Last Admin: 07/22/19 10:22 Dose: 10 ml Spironolactone (Aldactone) 50 mg PO DAILY [facility] Last Admin: 07/24/19 08:16 Dose: 50 mg Discontinued Medications Lactated Ringer's (Ringers, Lactated) 1,000 mls @ 500 mls/hr IV ASDIRECTED [facility] Last Admin: 07/21/19 12:51 Dose: 500 mls/hr Lactated Ringer's (Ringers, Lactated) 1,000 mls @ 125 mls/hr IV ASDIRECTED [facility] Last Admin: 07/22/19 08:51 Dose: 125 mls/hr Lactated Ringer's (Ringers, Lactated) 1,000 mls @ 75 mls/hr IV ASDIRECTED [facility] Lorazepam (Ativan) 1 mg IVPUSH ONETIME ONE Stop: 07/21/19 11:45 Last Admin: 07/21/19 12:47 Dose: 1 mg Lorazepam (Ativan) 1 mg IVPUSH Q4H PRN PRN Reason: Agitation Last Admin: 07/21/19 13:38 Dose: 1 mg Lorazepam (Ativan) 0 mg IVPUSH ASDIRECTED PRN; Protocol PRN Reason: Agitation Last Admin: 07/21/19 21:59 Dose: 2 mg - Exam General: Alert, Oriented, Mild Distress HEENT: Pupils Equal Neck: Supple Lungs: Clear to Auscultation, Normal Respiratory Effort Cardiovascular: Regular Rate GI/Abdominal Exam: Normal Bowel Sounds Back Exam: Normal Inspection, Full Range of Motion Extremities: Normal Inspection, Normal Range of Motion, Non-Tender, No Pedal Edema, Normal Capillary Refill Peripheral Pulses: 1+: Radial (L), Radial (R) Skin: Warm, Dry, Intact Neurological: Normal Speech, Sensation Intact Psy/Mental Status: Withdrawal Symptoms Sepsis Event Note - Evaluation Sepsis Screening Result: No Definite Risk - Focused Exam Vital Signs: Vital Signs Temp Pulse Resp BP BP Pulse Ox 07/24/19 15:52 99 F 93 20 133/86 95 07/24/19 12:44 98.2 F 97 16 134/83 95 07/24/19 08:17 144/89 H 07/24/19 08:16 144/89 H 07/24/19 08:00 97.6 F 73 13 144/89 H 96 Date Exam was Performed: 07/25/19 Time Exam was Performed: 19:47 - Problem List Review Problem List Initiated/Reviewed/Updated: Yes - My Orders Last 24 Hours: My Active Orders 07/23/19 18:17 Convert IV to Saline Lock [OM.PC] Routine 07/24/19 07:57 Patient Status [ADT] Routine - Plan Plan:: Assessment/plan: #1. Alcohol withdrawal. He is doing much better at the present time. He will be going for Rehab at [facility] and then to the rehab for alcohol treatment when able to safely ambulate alone. #2. Confusion. This a feel secondary to alcohol withdrawal much improved presently. #3. Hypertension: He needs to continue on with amlodipine as well as Bumex and lisinopril. #4. Depression. He'll continue with Wellbutrin as well as Cymbalta #5. Hyperlipidemia. Will continue with atorvastatin 10 mg every night. #6. Chronic obstructive pulmonary disease. We'll continue with albuterol inhaler. Still needs continued care.
[2019-07-24] MEDS: Potassium Chloride 10 MEQ Cap.ER PO SCH (21:14)
[2019-07-25] MEDS: LORazepam 2 MG/ML SDV IV PRN ×7 (00:14→06:35)
[2019-07-25] MEDS: Haloperidol Lactate 5 MG/ML SDV IVPUSH PRN (04:17)
[2019-07-25] MEDS: Spironolactone 25 MG Tab PO SCH (09:57)
[2019-07-25] MEDS: Bumetanide 1 MG Tab PO SCH (09:57)
[2019-07-25] MEDS: Folic Acid 1 MG Tab PO SCH (09:57)
[2019-07-25] MEDS: DULoxetine 30 MG Cap PO SCH (09:57)
[2019-07-25] MEDS: Lisinopril 10 MG Tab PO SCH (09:57)
[2019-07-25] MEDS: buPROPion 150 MG Tab.SR PO SCH ×2 (09:57→20:53)
[2019-07-25] MEDS: amLODIPine 5 MG Tab PO SCH (09:57)
[2019-07-25] MEDS: Dutasteride 0.5 MG Cap PO SCH (09:57)
[2019-07-25] MEDS: Potassium Chloride 10 MEQ Cap.ER PO SCH ×2 (09:57→20:53)
--- NOTE | 2019-07-25 19:55 | PCM.PN ---
- General Info Date of Service: 07/25/19 Subjective Update: He had a difficult time last night and early this morning he went into delirium tremors again and was transferred back to the ICU. He is sedated at the present time. Functional Status: Reports: Pain Controlled - Review of Systems General: Reports: Weakness, Fatigue HEENT: Reports: No Symptoms Pulmonary: Reports: No Symptoms Cardiovascular: Reports: No Symptoms Gastrointestinal: Reports: No Symptoms Genitourinary: Reports: No Symptoms Musculoskeletal: Reports: No Symptoms Skin: Reports: No Symptoms Neurological: Reports: No Symptoms Psychiatric: Reports: Confusion, Hallucinations - Patient Data Vitals - Most Recent: Last Vital Signs Temp 97.5 F 07/25/19 19:00 Pulse 89 07/25/19 07:00 Resp 19 07/25/19 19:00 BP 119/72 07/25/19 19:00 Pulse Ox 98 07/25/19 19:00 Weight - Most Recent: 327 lb 4.8 oz I&O - Last 24 Hours: Intake & Output 07/25/19 07/25/19 07/25/19 06:59 14:59 22:59 Intake Total 180 480 Output Total 575 Balance -395 480 Med Orders - Current: Current Medications Albuterol (Ventolin Hfa) 2 gm INH Q4H PRN PRN Reason: Shortness of Breath Amlodipine Besylate (Norvasc) 5 mg PO DAILY [facility] Last Admin: 07/25/19 09:57 Dose: Not Given Bumetanide (Bumex) 0.5 mg PO DAILY [facility] Last Admin: 07/25/19 09:57 Dose: Not Given Bupropion HCl (Wellbutrin Sr) 150 mg PO BID [facility] Last Admin: 07/25/19 09:57 Dose: Not Given Duloxetine HCl (Cymbalta) 60 mg PO DAILY [facility] Last Admin: 07/25/19 09:57 Dose: Not Given Dutasteride (Avodart) 0.5 mg PO DAILY [facility] Last Admin: 07/25/19 09:57 Dose: Not Given Folic Acid (Folic Acid) 1 mg PO DAILY [facility] Last Admin: 07/25/19 09:57 Dose: Not Given Haloperidol Lactate (Haldol) 5 mg IVPUSH Q2H PRN PRN Reason: Irritability Last Admin: 07/25/19 04:17 Dose: 5 mg Lisinopril (Prinivil) 10 mg PO DAILY [facility] Last Admin: 07/25/19 09:57 Dose: Not Given Lorazepam (Ativan) 0 mg PO ASDIRECTED PRN; Protocol PRN Reason: ETOH WITHDRAWAL Last Admin: 07/24/19 23:19 Dose: 1 mg Lorazepam (Ativan) 0 mg IV ASDIRECTED PRN; Protocol PRN Reason: ETOH WITHDRAWAL Last Admin: 07/25/19 06:35 Dose: 4 mg Lorazepam (Ativan) 0 mg IM ASDIRECTED PRN; Protocol PRN Reason: ETOH WITHDRAWAL Naproxen (Naprosyn) 500 mg PO BID PRN PRN Reason: Pain Last Admin: 07/23/19 00:13 Dose: 500 mg Potassium Chloride (Potassium Chloride) 10 meq PO BID [facility] Last Admin: 07/25/19 09:57 Dose: Not Given Sodium Chloride (Saline Flush) 10 ml FLUSH ASDIRECTED PRN PRN Reason: Keep Vein Open Last Admin: 07/22/19 10:22 Dose: 10 ml Spironolactone (Aldactone) 50 mg PO DAILY [facility] Last Admin: 07/25/19 09:57 Dose: Not Given Discontinued Medications Lactated Ringer's (Ringers, Lactated) 1,000 mls @ 500 mls/hr IV ASDIRECTED [facility] Last Admin: 07/21/19 12:51 Dose: 500 mls/hr Lactated Ringer's (Ringers, Lactated) 1,000 mls @ 125 mls/hr IV ASDIRECTED [facility] Last Admin: 07/22/19 08:51 Dose: 125 mls/hr Lactated Ringer's (Ringers, Lactated) 1,000 mls @ 75 mls/hr IV ASDIRECTED [facility] Lorazepam (Ativan) 1 mg IVPUSH ONETIME ONE Stop: 07/21/19 11:45 Last Admin: 07/21/19 12:47 Dose: 1 mg Lorazepam (Ativan) 1 mg IVPUSH Q4H PRN PRN Reason: Agitation Last Admin: 07/21/19 13:38 Dose: 1 mg Lorazepam (Ativan) 0 mg IVPUSH ASDIRECTED PRN; Protocol PRN Reason: Agitation Last Admin: 07/21/19 21:59 Dose: 2 mg - Exam General: Alert, Oriented HEENT: Pupils Equal, Pupils Reactive, EOMI, Mucous Membr. Moist/[place] Neck: Supple Lungs: Clear to Auscultation, Normal Respiratory Effort Cardiovascular: Regular Rate, Regular Rhythm GI/Abdominal Exam: Normal Bowel Sounds, Soft, Non-Tender, No Organomegaly, No Distention, No Abnormal Bruit, No Mass, Pelvis Stable Extremities: Normal Inspection Peripheral Pulses: 1+: Radial (L), Radial (R) Skin: Warm, Dry, Intact Neurological: No New Focal Deficit Psy/Mental Status: Withdrawal Symptoms Sepsis Event Note - Evaluation Sepsis Screening Result: No Definite Risk - Focused Exam Vital Signs: Vital Signs Temp Resp BP Pulse Ox 07/25/19 19:00 97.5 F 19 119/72 98 07/25/19 18:00 16 114/74 95 07/25/19 17:00 15 120/80 95 07/25/19 16:00 15 147/87 H 95 07/25/19 15:00 96.7 F 16 133/80 94 L 07/25/19 14:00 13 97/57 L 93 L 07/25/19 13:00 12 107/47 L 94 L 07/25/19 12:00 12 109/74 92 L 07/25/19 11:00 98.5 F 13 122/78 93 L 07/25/19 10:00 16 121/82 94 L 07/25/19 09:00 14 123/68 93 L 07/25/19 08:00 12 131/78 93 L Date Exam was Performed: 07/25/19 Time Exam was Performed: 19:51 - Problem List Review Problem List Initiated/Reviewed/Updated: Yes - My Orders Last 24 Hours: My Active Orders 07/24/19 21:00 Potassium Chloride 10 meq PO BID 07/25/19 00:53 Cardiac Monitoring [RC] .As Directed 07/25/19 06:45 Transfer Patient (Change bed) [ADT] Routine - Plan Plan:: Assessment/plan: #1. Alcohol withdrawal. He is sedated at the present time because of recurrent delirium tremors.. He will be going for Rehab at [facility] hopefully by Saturday if stable. He then after rehabilitation will be going for alcohol treatment in [place]. #2. Confusion. This a feel secondary to alcohol withdrawal much improved presently. #3. Hypertension: He needs to continue on with amlodipine as well as Bumex and lisinopril. #4. Depression. He'll continue with Wellbutrin as well as Cymbalta #5. Hyperlipidemia. Will continue with atorvastatin 10 mg every night. #6. Chronic obstructive pulmonary disease. We'll continue with albuterol inhaler. Still needs continued care.
[2019-07-26] MEDS: LORazepam 1 MG Tab PO PRN ×4 (00:20→20:41)
[2019-07-26] MEDS: Spironolactone 25 MG Tab PO SCH (08:38)
[2019-07-26] MEDS: amLODIPine 5 MG Tab PO SCH (08:39)
[2019-07-26] MEDS: DULoxetine 30 MG Cap PO SCH (08:39)
[2019-07-26] MEDS: Lisinopril 10 MG Tab PO SCH (08:40)
[2019-07-26] MEDS: Bumetanide 1 MG Tab PO SCH (08:41)
[2019-07-26] MEDS: Folic Acid 1 MG Tab PO SCH (08:41)
[2019-07-26] MEDS: Potassium Chloride 10 MEQ Cap.ER PO SCH ×2 (08:42→20:30)
[2019-07-26] MEDS: Dutasteride 0.5 MG Cap PO SCH (08:43)
[2019-07-26] MEDS: buPROPion 150 MG Tab.SR PO SCH ×2 (08:44→20:31)
--- NOTE | 2019-07-26 09:30 | PCM.PN ---
- General Info Date of Service: 07/26/19 Functional Status: Reports: Pain Controlled - Review of Systems General: Reports: Weakness HEENT: Reports: No Symptoms Pulmonary: Reports: No Symptoms Cardiovascular: Reports: No Symptoms Gastrointestinal: Reports: No Symptoms Genitourinary: Reports: No Symptoms Musculoskeletal: Reports: No Symptoms Skin: Reports: No Symptoms Neurological: Reports: Difficulty Walking, Weakness, Gait Disturbance Psychiatric: Reports: No Symptoms - Patient Data Vitals - Most Recent: Last Vital Signs Temp 97.9 F 07/26/19 03:00 Pulse 65 07/26/19 08:00 Resp 13 07/26/19 05:58 BP 139/71 07/26/19 08:40 Pulse Ox 98 07/26/19 04:00 Weight - Most Recent: 327 lb 4.8 oz I&O - Last 24 Hours: Intake & Output 07/25/19 07/26/19 07/26/19 22:59 06:59 14:59 Intake Total 480 Output Total 50 Balance 480 -50 Med Orders - Current: Current Medications Albuterol (Ventolin Hfa) 2 gm INH Q4H PRN PRN Reason: Shortness of Breath Amlodipine Besylate (Norvasc) 5 mg PO DAILY [facility] Last Admin: 07/26/19 08:39 Dose: 5 mg Bumetanide (Bumex) 0.5 mg PO DAILY [facility] Last Admin: 07/26/19 08:41 Dose: 0.5 mg Bupropion HCl (Wellbutrin Sr) 150 mg PO BID [facility] Last Admin: 07/26/19 08:44 Dose: 150 mg Duloxetine HCl (Cymbalta) 60 mg PO DAILY [facility] Last Admin: 07/26/19 08:39 Dose: 60 mg Dutasteride (Avodart) 0.5 mg PO DAILY [facility] Last Admin: 07/26/19 08:43 Dose: 0.5 mg Folic Acid (Folic Acid) 1 mg PO DAILY [facility] Last Admin: 07/26/19 08:41 Dose: 1 mg Haloperidol Lactate (Haldol) 5 mg IVPUSH Q2H PRN PRN Reason: Irritability Last Admin: 07/25/19 04:17 Dose: 5 mg Lisinopril (Prinivil) 10 mg PO DAILY [facility] Last Admin: 07/26/19 08:40 Dose: 10 mg Lorazepam (Ativan) 0 mg PO ASDIRECTED PRN; Protocol PRN Reason: ETOH WITHDRAWAL Last Admin: 07/26/19 03:29 Dose: 1 mg Lorazepam (Ativan) 0 mg IV ASDIRECTED PRN; Protocol PRN Reason: ETOH WITHDRAWAL Last Admin: 07/25/19 06:35 Dose: 4 mg Lorazepam (Ativan) 0 mg IM ASDIRECTED PRN; Protocol PRN Reason: ETOH WITHDRAWAL Naproxen (Naprosyn) 500 mg PO BID PRN PRN Reason: Pain Last Admin: 07/23/19 00:13 Dose: 500 mg Potassium Chloride (Potassium Chloride) 10 meq PO BID [facility] Last Admin: 07/26/19 08:42 Dose: 10 meq Sodium Chloride (Saline Flush) 10 ml FLUSH ASDIRECTED PRN PRN Reason: Keep Vein Open Last Admin: 07/22/19 10:22 Dose: 10 ml Spironolactone (Aldactone) 50 mg PO DAILY [facility] Last Admin: 07/26/19 08:38 Dose: 50 mg Discontinued Medications Lactated Ringer's (Ringers, Lactated) 1,000 mls @ 500 mls/hr IV ASDIRECTED [facility] Last Admin: 07/21/19 12:51 Dose: 500 mls/hr Lactated Ringer's (Ringers, Lactated) 1,000 mls @ 125 mls/hr IV ASDIRECTED [facility] Last Admin: 07/22/19 08:51 Dose: 125 mls/hr Lactated Ringer's (Ringers, Lactated) 1,000 mls @ 75 mls/hr IV ASDIRECTED [facility] Lorazepam (Ativan) 1 mg IVPUSH ONETIME ONE Stop: 07/21/19 11:45 Last Admin: 07/21/19 12:47 Dose: 1 mg Lorazepam (Ativan) 1 mg IVPUSH Q4H PRN PRN Reason: Agitation Last Admin: 07/21/19 13:38 Dose: 1 mg Lorazepam (Ativan) 0 mg IVPUSH ASDIRECTED PRN; Protocol PRN Reason: Agitation Last Admin: 07/21/19 21:59 Dose: 2 mg - Exam General: Alert, Oriented HEENT: Pupils Equal, Pupils Reactive, EOMI, Mucous Membr. Moist/[place] Neck: Supple Lungs: Clear to Auscultation, Normal Respiratory Effort Cardiovascular: Regular Rate, Regular Rhythm GI/Abdominal Exam: Normal Bowel Sounds, Soft, Non-Tender, No Organomegaly, No Distention, No Abnormal Bruit, No Mass, Pelvis Stable Back Exam: Normal Inspection, Full Range of Motion Extremities: Normal Inspection, Normal Range of Motion, Non-Tender, No Pedal Edema, Normal Capillary Refill Peripheral Pulses: 1+: Radial (L), Radial (R) Skin: Warm, Dry, Intact Neurological: No New Focal Deficit Psy/Mental Status: Alert, Normal Affect, Normal Mood Sepsis Event Note - Evaluation Sepsis Screening Result: No Definite Risk - Focused Exam Vital Signs: Vital Signs Temp Pulse Resp BP BP Pulse Ox 07/26/19 08:40 139/71 07/26/19 08:39 129/71 07/26/19 08:00 65 07/26/19 07:00 68 07/26/19 05:58 13 112/59 L 07/26/19 05:00 13 113/64 07/26/19 04:00 12 123/75 98 07/26/19 03:00 97.9 F 12 118/65 97 07/26/19 02:00 97.7 F 13 119/67 07/26/19 01:00 12 125/64 07/26/19 00:00 97.7 F 12 127/64 98 07/25/19 23:00 13 116/73 07/25/19 22:00 16 130/71 96 Date Exam was Performed: 07/26/19 Time Exam was Performed: 09:26 - Problem List Review Problem List Initiated/Reviewed/Updated: Yes - My Orders Last 24 Hours: My Active Orders 07/26/19 09:01 Transfer Patient (Change bed) [ADT] Routine 07/27/19 05:11 COMPREHENSIVE METABOLIC PN,CMP [CHEM] Routine - Plan Plan:: Assessment/plan: #1. Alcohol withdrawal. At the present time is in the ICU and doing very well with no symptoms at the present time. He'll be transferred up to the second there is no evidence of any withdrawals , delirium tremors.. He will be going for Rehab at [facility] hopefully by Saturday if stable. He then after rehabilitation will be going for alcohol treatment in [place]. #2. Confusion. He is stable at the present time. #3. Hypertension: He needs to continue on with amlodipine as well as Bumex and lisinopril. #4. Depression. He'll continue with Wellbutrin as well as Cymbalta #5. Hyperlipidemia. Will continue with atorvastatin 10 mg every night. #6. Chronic obstructive pulmonary disease. We'll continue with albuterol inhaler. Still needs continued care.
[2019-07-27] MEDS ORDERED: Sodium Phosphate,Monobasic/Sodium Phosphate,Dibasic Enema 133 ML Bottle RECTAL ONE (10:15)
[2019-07-27] MEDS ORDERED: Bisacodyl 10 MG Supp RECTAL ONE (10:15)
[2019-07-27] MEDS: Spironolactone 25 MG Tab PO SCH (10:30)
[2019-07-27] MEDS: Bumetanide 1 MG Tab PO SCH (10:31)
[2019-07-27] MEDS: Folic Acid 1 MG Tab PO SCH (10:32)
[2019-07-27] MEDS: DULoxetine 30 MG Cap PO SCH (10:32)
[2019-07-27] MEDS: amLODIPine 5 MG Tab PO SCH (10:32)
[2019-07-27] MEDS: Lisinopril 10 MG Tab PO SCH (10:34)
[2019-07-27] MEDS: Potassium Chloride 10 MEQ Cap.ER PO SCH (10:34)
[2019-07-27] MEDS: buPROPion 150 MG Tab.SR PO SCH (10:34)
[2019-07-27] MEDS: Dutasteride 0.5 MG Cap PO SCH (10:40)
--- NOTE | 2019-07-27 12:44 | PCM.PN ---
- General Info Date of Service: 07/27/19 Functional Status: Reports: Pain Controlled - Review of Systems General: Reports: Weakness, Fatigue HEENT: Reports: No Symptoms Pulmonary: Reports: No Symptoms Cardiovascular: Reports: No Symptoms Gastrointestinal: Reports: No Symptoms Genitourinary: Reports: No Symptoms Musculoskeletal: Reports: No Symptoms Skin: Reports: No Symptoms Neurological: Reports: Difficulty Walking, Weakness, Gait Disturbance Psychiatric: Reports: No Symptoms - Patient Data Vitals - Most Recent: Last Vital Signs Temp 97.9 F 07/27/19 11:00 Pulse 79 07/27/19 11:00 Resp 18 07/27/19 11:00 BP 135/70 07/27/19 11:00 Pulse Ox 96 07/27/19 11:00 Weight - Most Recent: 327 lb 4.8 oz I&O - Last 24 Hours: Intake & Output 07/26/19 07/27/19 07/27/19 22:59 06:59 14:59 Intake Total 480 960 Output Total 100 250 Balance 380 -250 960 Lab Results Last 24 Hours: Laboratory Results - last 24 hr 07/27/19 Range/Units 05:30 Sodium 138 L (140-148) mmol/L Potassium 3.9 (3.6-5.2) mmol/L Chloride 104 (100-108) mmol/L Carbon Dioxide 24 (21-32) mmol/L Anion Gap 13.9 (5.0-14.0) mmol/L BUN 13 (7-18) mg/dL Creatinine 1.1 (0.8-1.3) mg/dL Est Cr Clr Drug Dosing 75.80 mL/min Estimated GFR (MDRD) > 60 (>60) Glucose 82 (74-106) mg/dL Calcium 8.7 (8.5-10.1) mg/dL Total Bilirubin 0.8 (0.2-1.0) mg/dL AST 53 H (15-37) U/L ALT 96 H (12-78) U/L Alkaline Phosphatase 62 (46-116) U/L Total Protein 7.1 (6.4-8.2) g/dL Albumin 3.5 (3.4-5.0) g/dL Globulin 3.6 H (2.3-3.5) g/dL Albumin/Globulin Ratio 1.0 L (1.2-2.2) Med Orders - Current: Current Medications Albuterol (Ventolin Hfa) 2 gm INH Q4H PRN PRN Reason: Shortness of Breath Amlodipine Besylate (Norvasc) 5 mg PO DAILY [facility] Last Admin: 07/27/19 10:32 Dose: 5 mg Bumetanide (Bumex) 0.5 mg PO DAILY [facility] Last Admin: 07/27/19 10:31 Dose: 0.5 mg Bupropion HCl (Wellbutrin Sr) 150 mg PO BID [facility] Last Admin: 07/27/19 10:34 Dose: 150 mg Duloxetine HCl (Cymbalta) 60 mg PO DAILY [facility] Last Admin: 07/27/19 10:32 Dose: 60 mg Dutasteride (Avodart) 0.5 mg PO DAILY [facility] Last Admin: 07/27/19 10:40 Dose: 0.5 mg Folic Acid (Folic Acid) 1 mg PO DAILY [facility] Last Admin: 07/27/19 10:32 Dose: 1 mg Haloperidol Lactate (Haldol) 5 mg IVPUSH Q2H PRN PRN Reason: Irritability Last Admin: 07/25/19 04:17 Dose: 5 mg Lisinopril (Prinivil) 10 mg PO DAILY [facility] Last Admin: 07/27/19 10:34 Dose: 10 mg Lorazepam (Ativan) 0 mg PO ASDIRECTED PRN; Protocol PRN Reason: ETOH WITHDRAWAL Last Admin: 07/26/19 20:41 Dose: 2 mg Lorazepam (Ativan) 0 mg IV ASDIRECTED PRN; Protocol PRN Reason: ETOH WITHDRAWAL Last Admin: 07/25/19 06:35 Dose: 4 mg Lorazepam (Ativan) 0 mg IM ASDIRECTED PRN; Protocol PRN Reason: ETOH WITHDRAWAL Naproxen (Naprosyn) 500 mg PO BID PRN PRN Reason: Pain Last Admin: 07/23/19 00:13 Dose: 500 mg Potassium Chloride (Potassium Chloride) 10 meq PO BID [facility] Last Admin: 07/27/19 10:34 Dose: 10 meq Sodium Chloride (Saline Flush) 10 ml FLUSH ASDIRECTED PRN PRN Reason: Keep Vein Open Last Admin: 07/22/19 10:22 Dose: 10 ml Spironolactone (Aldactone) 50 mg PO DAILY [facility] Last Admin: 07/27/19 10:30 Dose: 50 mg Discontinued Medications Bisacodyl (Dulcolax) 10 mg RECTAL ONETIME ONE Stop: 07/27/19 10:16 Last Admin: 07/27/19 10:35 Dose: Not Given Lactated Ringer's (Ringers, Lactated) 1,000 mls @ 500 mls/hr IV ASDIRECTED [facility] Last Admin: 07/21/19 12:51 Dose: 500 mls/hr Lactated Ringer's (Ringers, Lactated) 1,000 mls @ 125 mls/hr IV ASDIRECTED [facility] Last Admin: 07/22/19 08:51 Dose: 125 mls/hr Lactated Ringer's (Ringers, Lactated) 1,000 mls @ 75 mls/hr IV ASDIRECTED [facility] Lorazepam (Ativan) 1 mg IVPUSH ONETIME ONE Stop: 07/21/19 11:45 Last Admin: 07/21/19 12:47 Dose: 1 mg Lorazepam (Ativan) 1 mg IVPUSH Q4H PRN PRN Reason: Agitation Last Admin: 07/21/19 13:38 Dose: 1 mg Lorazepam (Ativan) 0 mg IVPUSH ASDIRECTED PRN; Protocol PRN Reason: Agitation Last Admin: 07/21/19 21:59 Dose: 2 mg Sodium Biphosphate/Sodium Phosphate (Fleet Enema) 133 ml RECTAL ONETIME ONE Stop: 07/27/19 10:16 Last Admin: 07/27/19 09:50 Dose: 1 dose - Exam General: Alert, Oriented HEENT: Pupils Equal, Pupils Reactive, EOMI, Mucous Membr. Moist/[place] Neck: Supple Lungs: Clear to Auscultation, Normal Respiratory Effort Cardiovascular: Regular Rate, Regular Rhythm GI/Abdominal Exam: Normal Bowel Sounds, Soft, Non-Tender, No Organomegaly, No Distention, No Abnormal Bruit, No Mass, Pelvis Stable Back Exam: Normal Inspection, Full Range of Motion Extremities: Normal Inspection, Normal Range of Motion, Non-Tender, No Pedal Edema, Normal Capillary Refill Peripheral Pulses: 1+: Radial (L), Radial (R) Skin: Warm, Dry, Intact Neurological: No New Focal Deficit Psy/Mental Status: Alert, Normal Affect, Normal Mood Sepsis Event Note - Evaluation Sepsis Screening Result: No Definite Risk - Focused Exam Vital Signs: Vital Signs Temp Pulse Resp BP BP Pulse Ox 07/27/19 11:00 97.9 F 79 18 135/70 96 07/27/19 10:34 112/76 07/27/19 10:32 112/76 07/27/19 07:00 98.1 F 62 18 112/76 94 L 07/27/19 03:57 99.2 F 70 16 132/77 94 L Date Exam was Performed: 07/27/19 Time Exam was Performed: 12:39 - Problem List Review Problem List Initiated/Reviewed/Updated: Yes - Plan Plan:: Assessment/plan: #1. Alcohol withdrawal. He is doing very well with no symptoms at the present time. He'll be transferred up to to [facility] for rehab. Then after rehabilitation will be going for alcohol treatment in [place]. Potassium is 3.9 and liver functions are improving. #2. Confusion. He is stable at the present time. #3. Hypertension: He needs to continue on with amlodipine as well as Bumex and lisinopril. BP good control. #4. Depression. He'll continue with Wellbutrin as well as Cymbalta #5. Hyperlipidemia. Will continue with atorvastatin 10 mg every night. #6. Chronic obstructive pulmonary disease. We'll continue with albuterol inhaler.
--- NOTE | 2019-07-27 12:49 | PCM.DCSUM1 ---
Discharge Summary - Hospital Course Brief History: Admitted to the hospital having DT's and required multiple medication for 4 days. History of heavy alc. use. Diagnosis: Stroke: No - Discharge Data Discharge Date: 07/27/19 Discharge Disposition: DC/Tfer to Inpt Rehab Fac 62 Condition: Good - Referral to Home Health Primary Care Physician: Cheikh - Patient Summary/Data Consults: Consultations 07/21/19 16:18 PT Evaluation and Treatment [CONS] Routine Please Evaluate and Treat. PT Reason for Consult: Ambulation Pending Discharge: Yes This query below is only for informational purposes and is not editable. Admission Diagnosis/Problem: Alcohol withdrawal delirium Hospital Course: While in the hospital he required multiple medication and was in the ICU twice to control the DT's K+ was low and needed meds. and needed to continue meds for HTN. Liver functions were elevated but improving. - Patient Instructions Diet: Heart Healthy Diet, No Alcoholic Beverages Activity: As Tolerated - Discharge Plan *PRESCRIPTION DRUG MONITORING PROGRAM REVIEWED*: No Home Medications: Home Meds Bumetanide [Bumex] 1 mg PO DAILY 07/21/19 [History] DULoxetine [Cymbalta] 60 mg PO DAILY 07/21/19 [History] Dutasteride 0.5 mg PO DAILY 07/21/19 [History] Lisinopril [Zestril] 10 mg PO DAILY 07/21/19 [History] Melatonin 3 mg PO BEDTIME PRN 07/21/19 [History] Multivitamin [Multivitamins] 1 tab PO DAILY 07/21/19 [History] Naltrexone 50 mg PO DAILY 07/21/19 [History] Potassium Chloride [K-Tab ER] 10 meq PO DAILY 07/21/19 [History] Spironolactone [Aldactone] 50 mg PO DAILY 07/21/19 [History] amLODIPine [Norvasc] 5 mg PO DAILY 07/21/19 [History] atorvaSTATin [Lipitor] 10 mg PO DAILY 07/21/19 [History] buPROPion [Wellbutrin SR] 150 mg PO BID 07/21/19 [History] Albuterol [Ventolin HFA] 2 gm INH Q4H PRN inhaler 07/27/19 [Rx] Bumetanide [Bumex] 0.5 mg PO DAILY tablet 07/27/19 [Rx] DULoxetine [Cymbalta] 60 mg PO DAILY cap 07/27/19 [Rx] Dutasteride [Avodart] 0.5 mg PO DAILY cap 07/27/19 [Rx] Folic Acid 1 mg PO DAILY tablet 07/27/19 [Rx] Spironolactone [Aldactone] 50 mg PO DAILY tablet 07/27/19 [Rx] amLODIPine [Norvasc] 5 mg PO DAILY tablet 07/27/19 [Rx] buPROPion [Wellbutrin SR] 150 mg PO BID tab.sr 07/27/19 [Rx] lisinopriL [Prinivil] 10 mg PO DAILY tablet 07/27/19 [Rx] Referrals: PCP,None [Primary Care Provider] - - Discharge Summary/Plan Comment DC Time >30 min.: Yes Discharge Summary/Plan Comment: Assessment/plan: #1. Alcohol withdrawal. He is doing very well with no symptoms at the present time. He'll be transferred up to to [facility] for rehab. Then after rehabilitation will be going for alcohol treatment in [place]. Potassium is 3.9 and liver functions are improving. #2. Confusion. He is stable at the present time. #3. Hypertension: He needs to continue on with amlodipine as well as Bumex and lisinopril. BP good control. #4. Depression. He'll continue with Wellbutrin as well as Cymbalta #5. Hyperlipidemia. Will continue with atorvastatin 10 mg every night. #6. Chronic obstructive pulmonary disease. We'll continue with albuterol inhaler. - General Info Functional Status: Reports: Pain Controlled - Review of Systems General: Reports: Weakness, Fatigue HEENT: Reports: No Symptoms Pulmonary: Reports: No Symptoms Cardiovascular: Reports: No Symptoms Gastrointestinal: Reports: No Symptoms Genitourinary: Reports: No Symptoms Musculoskeletal: Reports: No Symptoms Skin: Reports: No Symptoms Neurological: Reports: No Symptoms Psychiatric: Reports: No Symptoms - Patient Data Vitals - Most Recent: Last Vital Signs Temp 97.9 F 07/27/19 11:00 Pulse 79 07/27/19 11:00 Resp 18 07/27/19 11:00 BP 135/70 07/27/19 11:00 Pulse Ox 96 07/27/19 11:00 Weight - Most Recent: 327 lb 4.8 oz I&O - Last 24 hours: Intake & Output 07/26/19 07/27/19 07/27/19 22:59 06:59 14:59 Intake Total 480 960 Output Total 100 250 Balance 380 -250 960 Lab Results - Last 24 hrs: Laboratory Results - last 24 hr 07/27/19 Range/Units 05:30 Sodium 138 L (140-148) mmol/L Potassium 3.9 (3.6-5.2) mmol/L Chloride 104 (100-108) mmol/L Carbon Dioxide 24 (21-32) mmol/L Anion Gap 13.9 (5.0-14.0) mmol/L BUN 13 (7-18) mg/dL Creatinine 1.1 (0.8-1.3) mg/dL Est Cr Clr Drug Dosing 75.80 mL/min Estimated GFR (MDRD) > 60 (>60) Glucose 82 (74-106) mg/dL Calcium 8.7 (8.5-10.1) mg/dL Total Bilirubin 0.8 (0.2-1.0) mg/dL AST 53 H (15-37) U/L ALT 96 H (12-78) U/L Alkaline Phosphatase 62 (46-116) U/L Total Protein 7.1 (6.4-8.2) g/dL Albumin 3.5 (3.4-5.0) g/dL Globulin 3.6 H (2.3-3.5) g/dL Albumin/Globulin Ratio 1.0 L (1.2-2.2) Med Orders - Current: Current Medications Albuterol (Ventolin Hfa) 2 gm INH Q4H PRN PRN Reason: Shortness of Breath Amlodipine Besylate (Norvasc) 5 mg PO DAILY [facility] Last Admin: 07/27/19 10:32 Dose: 5 mg Bumetanide (Bumex) 0.5 mg PO DAILY [facility] Last Admin: 07/27/19 10:31 Dose: 0.5 mg Bupropion HCl (Wellbutrin Sr) 150 mg PO BID [facility] Last Admin: 07/27/19 10:34 Dose: 150 mg Duloxetine HCl (Cymbalta) 60 mg PO DAILY [facility] Last Admin: 07/27/19 10:32 Dose: 60 mg Dutasteride (Avodart) 0.5 mg PO DAILY [facility] Last Admin: 07/27/19 10:40 Dose: 0.5 mg Folic Acid (Folic Acid) 1 mg PO DAILY [facility] Last Admin: 07/27/19 10:32 Dose: 1 mg Haloperidol Lactate (Haldol) 5 mg IVPUSH Q2H PRN PRN Reason: Irritability Last Admin: 07/25/19 04:17 Dose: 5 mg Lisinopril (Prinivil) 10 mg PO DAILY [facility] Last Admin: 07/27/19 10:34 Dose: 10 mg Lorazepam (Ativan) 0 mg PO ASDIRECTED PRN; Protocol PRN Reason: ETOH WITHDRAWAL Last Admin: 07/26/19 20:41 Dose: 2 mg Lorazepam (Ativan) 0 mg IV ASDIRECTED PRN; Protocol PRN Reason: ETOH WITHDRAWAL Last Admin: 07/25/19 06:35 Dose: 4 mg Lorazepam (Ativan) 0 mg IM ASDIRECTED PRN; Protocol PRN Reason: ETOH WITHDRAWAL Naproxen (Naprosyn) 500 mg PO BID PRN PRN Reason: Pain Last Admin: 07/23/19 00:13 Dose: 500 mg Potassium Chloride (Potassium Chloride) 10 meq PO BID [facility] Last Admin: 07/27/19 10:34 Dose: 10 meq Sodium Chloride (Saline Flush) 10 ml FLUSH ASDIRECTED PRN PRN Reason: Keep Vein Open Last Admin: 07/22/19 10:22 Dose: 10 ml Spironolactone (Aldactone) 50 mg PO DAILY [facility] Last Admin: 07/27/19 10:30 Dose: 50 mg Discontinued Medications Bisacodyl (Dulcolax) 10 mg RECTAL ONETIME ONE Stop: 07/27/19 10:16 Last Admin: 07/27/19 10:35 Dose: Not Given Lactated Ringer's (Ringers, Lactated) 1,000 mls @ 500 mls/hr IV ASDIRECTED [facility] Last Admin: 07/21/19 12:51 Dose: 500 mls/hr Lactated Ringer's (Ringers, Lactated) 1,000 mls @ 125 mls/hr IV ASDIRECTED [facility] Last Admin: 07/22/19 08:51 Dose: 125 mls/hr Lactated Ringer's (Ringers, Lactated) 1,000 mls @ 75 mls/hr IV ASDIRECTED [facility] Lorazepam (Ativan) 1 mg IVPUSH ONETIME ONE Stop: 07/21/19 11:45 Last Admin: 07/21/19 12:47 Dose: 1 mg Lorazepam (Ativan) 1 mg IVPUSH Q4H PRN PRN Reason: Agitation Last Admin: 07/21/19 13:38 Dose: 1 mg Lorazepam (Ativan) 0 mg IVPUSH ASDIRECTED PRN; Protocol PRN Reason: Agitation Last Admin: 07/21/19 21:59 Dose: 2 mg Sodium Biphosphate/Sodium Phosphate (Fleet Enema) 133 ml RECTAL ONETIME ONE Stop: 07/27/19 10:16 Last Admin: 07/27/19 09:50 Dose: 1 dose - Exam General: Reports: Alert, Oriented HEENT: Reports: Pupils Equal, Pupils Reactive, EOMI, Mucous Membr. Moist/[place] Neck: Reports: Supple Lungs: Reports: Clear to Auscultation, Normal Respiratory Effort Cardiovascular: Reports: Regular Rate, Regular Rhythm GI/Abdominal Exam: Normal Bowel Sounds, Soft, Non-Tender, No Organomegaly, No Distention, No Abnormal Bruit, No Mass, Pelvis Stable Back Exam: Reports: Normal Inspection, Full Range of Motion Extremities: Normal Inspection, Normal Range of Motion, Non-Tender, No Pedal Edema, Normal Capillary Refill Skin: Reports: Warm, Dry, Intact Neurological: Reports: No New Focal Deficit Psy/Mental Status: Reports: Alert, Normal Affect, Normal Mood
== END 2019-07-27 13:45 | DRG 897 ==
LOC: JP.ED 11:30 → JP.ICU 13:14 → JP.MS 07-24 14:06 → JP.ICU 07-25 06:45 → JP.MS 07-26 10:57
PROVIDERS: ADMIT Internal Medicine; ATTEND Internal Medicine
DX: F10.231 Alcohol dependence with withdrawal delirium (principal); I50.32 Chronic diastolic (congestive) heart failure; E78.5 Hyperlipidemia, unspecified; S09.90XA Unspecified injury of head, initial encounter; W19.XXXA Unspecified fall, initial encounter; M19.90 Unspecified osteoarthritis, unspecified site; N40.0 Benign prostatic hyperplasia without lower urinary tract symptoms; F32.9 Major depressive disorder, single episode, unspecified; J44.9 Chronic obstructive pulmonary disease, unspecified; I11.0 Hypertensive heart disease with heart failure; G89.29 Other chronic pain; M54.5 Low back pain; F17.200 Nicotine dependence, unspecified, uncomplicated; Z79.899 Other long term (current) drug therapy; Z79.51 Long term (current) use of inhaled steroids
CPT/HCPCS: 36415; 70450; 80053; 82140; 83605; 84484; 85025; 85610; 96374; 99284; 99285; G0480; J2060; J7120; 97163-GP; 97530-GP; 97535-GP; A9270-GY; J1630